=== PATIENT | female | born 1945 | race Caucasian/White ===

== ENCOUNTER → 2020-09-05 | Outpatient (CLI) | payer MEDICARE, BC ==
--- NOTE | 2020-09-05 15:06 | US ---
EXAMINATION TYPE: US carotid duplex BILAT DATE OF EXAM: 09/05/2020 COMPARISON: NONE CLINICAL HISTORY: R55 near syncope. Dizziness EXAM MEASUREMENTS: RIGHT: Peak Systolic Velocity (PSV) cm/sec ----- Right CCA: 67.7 ----- Right ICA: 64.8 ----- Right ECA: 115.7 ICA/CCA ratio: 1.0 RIGHT: End Diastole cm/sec ----- Right CCA: 18.3 ----- Right ICA: 16.9 ----- Right ECA: 18.3 LEFT: Peak Systolic Velocity (PSV) cm/sec ----- Left CCA: 70.6 ----- Left ICA: 75.0 ----- Left ECA: 53.2 ICA/CCA ratio: 1.1 LEFT: End Diastole cm/sec ----- Left CCA: 19.8 ----- Left ICA: 25.6 ----- Left ECA: 0 VERTEBRALS (direction of flow): Right Vertebral: Antegrade Left Vertebral: Antegrade Rhythm: Normal Vessels dive deep. No significant stenosis seen IMPRESSION: No significant flow-limiting stenosis. Criteria for Assigning % of Stenosis / Diameter reduction (Estimation based on the indirect measurements of the internal carotid artery velocities (ICA PSV). 1. Normal (no stenosis)=ICA PSV < 125 cm/s: ratio < 2.0: ICA EDV<40 cm/s. 2. Less than 50% stenosis=ICA PSV < 125 cm/s: ratio < 2.0: ICA EDV<40 cm/s. 3. 50 to 69% stenosis=ICA PSV of 125 to 230 cm/s: ration 2.0 ? 4.0: ICA EDV 40-100 cm/s. 4. Greater than 70% stenosis to near occlusion= ICA PSV > 230 cm/s: ratio > 4.0: ICA EDV > 100 cm/s. 5. Near occlusion= ICA PSV velocities may be low or undetectable: variable ratio and ICA EDV. 6. Total occlusion=unable to detect flow.
== END | disposition home or self-care (01) ==
LOC: RADUSWWP 13:39
PROVIDERS: ATTEND Family Medicine
DX: R55 Syncope and collapse (principal)
CPT/HCPCS: 93880

== ENCOUNTER → 2021-12-23 | Outpatient (CLI) | payer MEDICARE, BC | END | disposition home or self-care (01) | LOC: LABPAT 13:09 | PROVIDERS: ATTEND Nurse Practitioner Adult Health | DX: U07.1 COVID-19 (principal) ==

== ENCOUNTER 2021-12-25 06:36 | Day surgery (SDC) | payer MEDICARE, BC ==
[2021-12-23 11:28] VITALS: BMI 23.1
[~2021-12-25 06:36] MED LIST: ALPRAZolam 0.25 MG TAB PO PRN; ALPRAZolam 0.5 MG TAB PO PRN; ASPIRIN 325 MG TAB PO STA; HEPARIN SODIUM,PORCINE 10,000 UNIT in SODIUM CHLORIDE 0.9% 1,000 ML IRRIGATION PRN; HEPARIN SODIUM,PORCINE 2,500 UNIT in SODIUM CHLORIDE 0.9% 250 ML IRRIGATION PRN; NITROGLYCERIN SL TABS 0.4 MG TAB SUBLINGUAL PRN
[2021-12-25] MEDS: SODIUM CHLORIDE 0.9% 1,000 ML in EMPTY BAG 1 BAG IV SCH ×2 (06:50→21:46)
[2021-12-25] MEDS ORDERED: VERAPAMIL 2.5 MG/ML 2 ML AMP ONE (07:16)
[2021-12-25] MEDS ORDERED: LIDOCAINE 1% INJ 10MG/ML (20 ML MDV) ONE (07:17)
[2021-12-25] MEDS ORDERED: HEPARIN SODIUM 1,000 UN/ML (10ML VL) ONE (07:30)
[2021-12-25] MEDS ORDERED: MIDAZOLAM 2 MG/2 ML VIAL IVP ONE ×2 (07:42→08:13)
[2021-12-25] MEDS ORDERED: LIDOCAINE 1% INJ 10MG/ML (20 ML MDV) SQ ONE (07:43)
[2021-12-25] MEDS ORDERED: VERAPAMIL SYRINGE (5 MG/10 ML) INTRAARTER ONE (07:45)
[2021-12-25] MEDS: HEPARIN SODIUM 1,000 UN/ML (10ML VL) IV ONE ×2 (07:47→07:55)
[2021-12-25] MEDS ORDERED: CLOPIDOGREL 75 MG TAB ONE (07:56)
[2021-12-25] MEDS ORDERED: CLOPIDOGREL 75 MG TAB PO ONE (07:58)
[2021-12-25] MEDS ORDERED: NITROGLYCERIN 1000MCG/10ML SYRINGE INTRACORON ONE (08:14)
[2021-12-25] MEDS ORDERED: IOPAMIDOL-370 125ML BTL INJ ONE (08:19)
[2021-12-25] MEDS ORDERED: NALOXONE 0.4 MG/ML 1 ML VIAL IVP PRN (08:25)
[2021-12-25] MEDS ORDERED: SODIUM CHLORIDE 0.9% 1,000 ML in EMPTY BAG 1 BAG IV SCH (08:30)
[2021-12-25] MEDS ORDERED: [UNRECOGNIZED DRUG - OTHER] PO SCH (09:00)
[2021-12-25] MEDS ORDERED: ATORVASTATIN PO SCH (09:00)
[2021-12-25] MEDS ORDERED: AMLODIPINE PO SCH (09:00)
[2021-12-25] MEDS ORDERED: [UNRECOGNIZED DRUG - OTHER] PO SCH (09:00)
[2021-12-25] MEDS: METOPROLOL SUCCINATE (ER) 25 MG TAB.ER.24H PO SCH (12:55)
[2021-12-25 17:07] LABS: Glucose,Whole Blood 113 mg/dL (75-99)
--- NOTE | 2021-12-25 17:27 | P.PCN ---
Date of Procedure: 12/25/21 Operative Findings: CARDIAC CATHETERIZATION AND PERCUTANEOUS CORONARY INTERVENTION PERFORMING PHYSICIAN: Pedro Washburn MD, [facility] PROCEDURE PERFORMED: 1. Selective right and left coronary angiogram 2. Left heart catheterization 3. Successful stenting of proximal left anterior descending artery using 3.5 x 15 mm Xience MASON which with an excellent angiographic results INDICATION: This is a very pleasant 76-year-old female patient who was experiencing shortness of breath with exertion and she underwent myocardial perfusion imaging stress test and left anterior ischemia. COMPLICATION: None APPROACH: Right radial artery LEVEL OF SEDATION: Moderate with the sedation time off 37 minutes PROCEDURE DESCRIPTION: After obtaining an informed consent the patient was brought to the cardiac laboratory mechanic helper. Right radial artery was cannulated using micropuncture technique, the micropuncture wire passed easily then I placed a 6-Thai sheath in the right radial artery sequentially acute the patient 2 mg of verapamil IV and 6000 units of heparin IV. Subsequently. Selective right and left coronary angiogram using JR4 and JL 5 catheters. Left heart catheterization was performed using 5-Thai pigtail catheter. After that I did intervene on the LAD. SELECTIVE CORONARY ANGIOGRAM: The right coronary artery: Is a large caliber vessel and dominant vessel. The proximal RCA appeared to be angiographically normal. The mid RCA is angiographically normal. The RCA distally has intermediate lesion appeared to be in the range of 50%. Bifurcates into PDA and PLV branches. The PDA branch appears to have mild disease only and the PLV branch has mild disease only as well. Left main: Is angiographically normal. Bifurcates into left circumflex and left anterior descending artery The left circumflex: Is a large caliber vessel and nondominant vessel. The left circumflex has mild disease only. It gives rise to a large OM branch which has mild lesion. The circumflex continue after that as a small-caliber vessel in the AV groove The left anterior descending artery: Is a large caliber vessel. The proximal LAD has eccentric lesion appeared to be in the range of 80%. The mid LAD has mild disease only. Distally appeared to be angiographically normal and becomes tortuous. The LAD gives rises into a large diagonal branch which seems to be angiographically normal. HEMODYNAMICS: The LVEDP was about 15 mmHg without significant gradient across aortic valve PCI OF THE LAD: Anticoagulation was initiated using heparin continuous ACT monitored throughout the case. After that I did engage the left main using JL4 guiding catheter. The wire the LAD using a run-through wire predilatation was performed using 3.0 x 12 mm balloon before I deployed 3.5 x 15 mm stent where the stent was positioned under fluoroscopy guidance and deployed under [address] for 20 seconds. I postdilated the stent using 4 mm noncompliant balloon. The final angiogram showed good angiographic results and the procedure was completed without any complication CONCLUSION: #1 shortness of breath in this 76-year-old female patient who underwent myocardial perfusion imaging stress test showed an inferior ischemia #2 critical disease involving the proximal left anterior descending artery. I performed successful stenting of the LAD results #3 intermediate disease involving the right coronary system #4 normal left-sided filling pressure POSTPROCEDURE MANAGEMENT: #1 dual antiplatelet therapy #2 aggressive cholesterol control #3 follow-up with the patient
[2021-12-25] MEDS ORDERED: ATORVASTATIN 80 MG TAB PO SCH (21:00)
--- NOTE | 2021-12-26 08:27 | P.DS ---
Providers Date of admission: 12/25/2021 Attending physician: Pedro Washburn Primary care physician: D[facility] Hospital Course: The patient is a 76-year-old female patient was experiencing shortness of breath that she underwent myocardial perfusion imaging stress test and that showed an anterior ischemia. Subsequently heart catheterization was performed and revealed severe disease involving the proximal LAD. She underwent successful stenting of the LAD. She was seen this morning. The right radial site is soft and nontender with good pulse. The patient is going to be discharged home on dual antiplatelet therapy and high intensity statin and I'll follow-up with the patient in a week Plan - Discharge Summary Discharge Rx Participant: No New Discharge Prescriptions: New Atorvastatin Calcium [Lipitor] 80 mg PO DAILY #90 tablet Clopidogrel Bisulfate [Plavix] 75 mg PO DAILY #90 tab Continue amLODIPine/ATORVASTATIN [amLODIPine/ATORVASTATIN 10-80 MG] 1 tab PO DAILY Aspirin 81 mg PO DAILY Immune Defense Supplement 1 tab PO DAILY Discontinued Isosorbide Mononitrate [Isosorbide Mononitrate ER] 15 mg PO DAILY Discharge Medication List Aspirin 81 mg PO DAILY 12/23/21 [History] Immune Defense Supplement 1 tab PO DAILY 12/23/21 [History] amLODIPine/ATORVASTATIN [amLODIPine/ATORVASTATIN 10-80 MG] 1 tab PO DAILY 12/23/21 [History] Atorvastatin Calcium [Lipitor] 80 mg PO DAILY #90 tablet 12/26/21 [Rx] Clopidogrel Bisulfate [Plavix] 75 mg PO DAILY #90 tab 12/26/21 [Rx] Follow up Appointment(s)/Referral(s): Pedro Washburn MD [STAFF PHYSICIAN] - 12/30/21 2:15 pm (Recheck appt. is @ [employer] office.) Patient Instructions/Handouts: Metoprolol (By mouth), Clopidogrel (By mouth)
[2021-12-26] MEDS: METOPROLOL SUCCINATE (ER) 25 MG TAB.ER.24H PO SCH (08:29)
[2021-12-26 08:35] VITALS: BP 153/82; PULSE 80; RESP 16; TEMP 97.6
[2021-12-26] MEDS ORDERED: ASPIRIN 81 MG PO SCH (09:00)
[2021-12-26] MEDS ORDERED: ISOSORBIDE MONONITRATE ER 15 MG TAB PO SCH (09:00)
[2021-12-26] MEDS ORDERED: CLOPIDOGREL 75 MG TAB PO SCH (09:00)
[2021-12-26] MEDS ORDERED: ATORVASTATIN 80 MG TAB PO SCH (09:00)
[2021-12-26] MEDS ORDERED: amLODIPine 10 MG TAB PO SCH (09:00)
--- NOTE | 2021-12-29 11:01 | P.PCN ---
Date of Procedure: 12/29/21 Operative Findings: This is an addendum that the stent was placed in the LAD was 4.0 x 15 mm and not 3.5 x 15 mm Xience MASON
== END 2021-12-26 10:05 | disposition home or self-care (01) ==
LOC: CATHCVL 06:36 → 6NMEDSUR 08:19 → CATHCVL 12-26 10:05
PROVIDERS: ATTEND Internal Medicine Interventional Cardiology
DX: I99.8 Other disorder of circulatory system (principal); Z79.02 Long term (current) use of antithrombotics/antiplatelets
CPT/HCPCS: 93458; C9600; C1887; C1894; C1725 ×2; C1769; C1874; J2250; J2001; J1644; Q9967

== ENCOUNTER → 2022-04-02 | Outpatient (CLI) | payer MEDICARE, BC ==
[~2022-04-02] MED LIST changes: -ALPRAZolam 0.25 MG TAB PO PRN; -ALPRAZolam 0.5 MG TAB PO PRN; -ASPIRIN 325 MG TAB PO STA; +BEBTELOVIMAB (EUA) 175 MG/2 ML VIAL IV ONE; -HEPARIN SODIUM,PORCINE 10,000 UNIT in SODIUM CHLORIDE 0.9% 1,000 ML IRRIGATION PRN; -HEPARIN SODIUM,PORCINE 2,500 UNIT in SODIUM CHLORIDE 0.9% 250 ML IRRIGATION PRN; -NITROGLYCERIN SL TABS 0.4 MG TAB SUBLINGUAL PRN; +SODIUM CHLORIDE 0.9% 500 ML 500 ML in EMPTY BAG 1 BAG IV PRN
[2022-04-02 13:42] VITALS: RESP 16
[2022-04-02 14:40] VITALS: BP 158/81; PULSE 81; TEMP 97.8
== END ==
LOC: PROCWHC3 12:51
PROVIDERS: ATTEND Physician Assistant Medical
DX: U07.1 COVID-19 (principal); E66.9 Obesity, unspecified; Z68.23 Body mass index [BMI] 23.0-23.9, adult
CPT/HCPCS: 96374; Q0222

== ENCOUNTER → 2022-05-20 | Outpatient (CLI) | payer MEDICARE, BC ==
--- NOTE | 2022-05-21 05:17 | MR ---
EXAMINATION TYPE: MR shoulder LT wo con DATE OF EXAM: 05/20/2022 COMPARISON: None HISTORY: PAIN IN LEFT SHOULDER Multiplanar multiecho imaging of the left shoulder with no contrast. There is moderate osteoarthritis of the glenohumeral joint. There is very large hypertrophic osteophy te on the inferior humeral head. There is shoulder joint effusion with multiple synovial cysts around the shoulder joint. There are degenerative cyst formation in the greater tuberosity of the humerus. The biceps tendon is intact. Subscapularis tendon is intact. No acute fracture seen. There is some ed riana in the glenoid and no significant subacromial impingement. The supraspinatus tendon is intact. No retraction. There is a large osteophyte on the superior glenoid on the medial aspect. This measures 2.2 cm and is impinging on the supraspinatus muscle. There is elevation of the muscle. IMPRESSION: Hypertrophic osteoarthritis. Large osteophyte formation on the inferior humeral head and also on the glenoid as above. There is also multiple areas of synovial cyst formation around the shoulder joint i ncluding areas around the subscapularis tendon. No evidence of rotator cuff tear.
== END | disposition home or self-care (01) ==
LOC: RADMRIMAIN 09:22
PROVIDERS: ATTEND Physician Assistant Medical
DX: M25.712 Osteophyte, left shoulder (principal); M25.512 Pain in left shoulder